=== PATIENT | female | born 1945 | race Hispanic/Latino ===

== ENCOUNTER 2022-02-14 21:33 | Inpatient (IN) | payer OTHER ==
[~2022-02-14] VITALS: Ht 160 cm; Wt 63.0 kg
[2022-02-14 22:33] LABS: BASOPHILS % (AUTO) 0.4 % (0.0-5.0); EOSINOPHILS % (AUTO) 0.3 % (0.0-8.0); HEMATOCRIT 37.5 % (36-48); LYMPHOCYTES % (AUTO) 11.1 % (21.0-51.0); MEAN CORPUSCULAR HGB CONC 33.6 g/dL (32.0-36.0); MEAN CORPUSCULAR VOLUME 92.1 fL (79-99); MONOCYTES % (AUTO) 2.6 % (3.0-13.0); NEUTROPHILS % (AUTO) 84.6 % (40.0-77.0); PLATELET COUNT (AUTO) 135 K/uL (130-400); RED BLOOD CELL COUNT(AUTO) 4.07 MIL/uL (4.00-5.50); RED CELL DISTRIBUTION WIDTH 13.6 % (11.0-15.5); WHITE BLOOD COUNT (AUTO) 9.9 K/uL (4.8-10.8)
[2022-02-14 22:38] LABS: APPEARANCE,URINE CLEAR (CLEAR); BILIRUBIN,URINE NEGATIVE (NEGATIVE); COLOR,URINE LIGHT-YELLOW (YELLOW); GLUCOSE, URINE (UA) NEGATIVE (NEGATIVE); KETONES,URINE NEGATIVE (NEGATIVE); LEUKOCYTE ESTERASE ,URINE 250 Leu/uL (NEGATIVE); NITRATE,URINE NEGATIVE (NEGATIVE); OCCULT BLOOD,URINE NEGATIVE (NEGATIVE); PROTEIN,URINE 10 mg/dL (NEGATIVE); UROBILINOGEN,URINE 0.2 mg/dL (0.2-1.0)
[2022-02-14 22:46] LABS: ALBUMIN 3.1 g/dL (3.5-5.0); CREATININE 2.5 mg/dL (0.5-1.5); POTASSIUM 4.5 mmol/L (3.5-5.1); TOTAL PROTEIN, SERUM 7.1 g/dL (6.0-8.3)
[2022-02-14 23:01] LABS: BACTERIA,URINE RARE /HPF (None Seen); MUCUS,URINE FEW LPF (None Seen); RBC,URINE 0-1 /HPF (0-1); SQUAMOUS EPITHELIAL CELL,UR FEW /HPF (0-2)
[2022-02-14 23:06] LABS: CRP QUANTITATIVE 200.3 mg/L (0.00-9.0)
[2022-02-14] MEDS ORDERED: 0.9%NACL 1000ML 1,000 ML IV SCH (23:30)
[2022-02-14] MEDS ORDERED: CEFTRIAXONE 1G VIAL IVP ONE (23:30)
[2022-02-14] MEDS: 0.9%NACL 1000ML 1,000 ML IV SCH (23:55)
[2022-02-14] MEDS: ASPIRIN 81 MG EC TAB PO SCH (23:59)
[2022-02-15] MEDS ORDERED: ACETAMINOPHEN 325 MG TAB PO PRN (00:30)
[2022-02-15] MEDS ORDERED: ONDANSETRON 4MG INJ IV PRN (00:30)
[2022-02-15 00:34] LABS: HEMOGLOBIN A1C 6.4 % (4.0-6.0)
[2022-02-15] MEDS ORDERED: LOSA50TA64 PO (02:54)
[2022-02-15] MEDS: ACETAMINOPHEN 325 MG TAB PO PRN (03:02)
[2022-02-15 04:02] VITALS: BP 115/62
[2022-02-15 05:00] LABS: BASOPHILS % (AUTO) 0.4 % (0.0-5.0); EOSINOPHILS % (AUTO) 0.4 % (0.0-8.0); HEMATOCRIT 31.1 % (36-48); LYMPHOCYTES % (AUTO) 11.5 % (21.0-51.0); MEAN CORPUSCULAR HEMOGLOBIN 31.5 pg (27.0-33.0); MEAN CORPUSCULAR HGB CONC 34.1 g/dL (32.0-36.0); MEAN CORPUSCULAR VOLUME 92.3 fL (79-99); MONOCYTES % (AUTO) 3.1 % (3.0-13.0); NEUTROPHILS % (AUTO) 83.7 % (40.0-77.0); PLATELET COUNT (AUTO) 119 K/uL (130-400); RED BLOOD CELL COUNT(AUTO) 3.37 MIL/uL (4.00-5.50); RED CELL DISTRIBUTION WIDTH 13.8 % (11.0-15.5); WHITE BLOOD COUNT (AUTO) 7.5 K/uL (4.8-10.8)
[2022-02-15 05:24] LABS: ALBUMIN 2.2 g/dL (3.5-5.0); CREATININE 2.1 mg/dL (0.5-1.5); MAGNESIUM 1.7 mg/dL (1.80-2.40); POTASSIUM 4.4 mmol/L (3.5-5.1); TOTAL PROTEIN, SERUM 5.6 g/dL (6.0-8.3)
[2022-02-15] MEDS ORDERED: MAGNESIUM 2GM PREMIX 50ML 50 ML IV PRN (06:00)
[2022-02-15 07:05] VITALS: BP 140/78
[2022-02-15] MEDS: ASPIRIN 81 MG EC TAB PO SCH (10:35)
[2022-02-15] MEDS: CEFTRIAXONE 1G VIAL IV SCH (10:35)
[2022-02-15] MEDS: ENOXAPARIN SODIUM 40 MG/0.4 ML SYRINGE SQ SCH (10:35)
[2022-02-15] MEDS: FAMOTIDINE 20MG TAB PO SCH ×2 (10:35→21:29)
[2022-02-15] MEDS: 0.9%NACL 1000ML 1,000 ML IV SCH ×2 (10:41→20:00)
[2022-02-15 11:05] VITALS: BP 122/56
[2022-02-15 15:00] VITALS: BP 87/39
[2022-02-15] MEDS ORDERED: CLOPIDOGREL 75MG TAB PO ONE (17:00)
[2022-02-15] MEDS ORDERED: 0.9%NACL 1000ML 1,000 ML IV SCH ×2 (17:00)
[2022-02-15 17:17] LABS: THYROID STIMULATING HORMONE 2.9 uIU/mL (0.36-3.74)
[2022-02-15] MEDS: MEROPENEM 500 MG VIAL IVP SCH (18:07)
[2022-02-15 20:06] VITALS: BP 104/53
[2022-02-15] MEDS ORDERED: ATORVASTATIN 20 MG TABLET PO SCH (21:00)
[2022-02-15 23:38] VITALS: BP 127/73
[2022-02-16] MEDS: ACETAMINOPHEN 325 MG TAB PO PRN (02:15)
[2022-02-16 04:10] LABS: BASOPHILS % (AUTO) 0.5 % (0.0-5.0); EOSINOPHILS % (AUTO) 0.3 % (0.0-8.0); HEMATOCRIT 29.8 % (36-48); LYMPHOCYTES % (AUTO) 23.1 % (21.0-51.0); MEAN CORPUSCULAR HEMOGLOBIN 30.8 pg (27.0-33.0); MEAN CORPUSCULAR HGB CONC 33.2 g/dL (32.0-36.0); MEAN CORPUSCULAR VOLUME 92.8 fL (79-99); MONOCYTES % (AUTO) 2.7 % (3.0-13.0); NEUTROPHILS % (AUTO) 72.5 % (40.0-77.0); PLATELET COUNT (AUTO) 128 K/uL (130-400); RED BLOOD CELL COUNT(AUTO) 3.21 MIL/uL (4.00-5.50); RED CELL DISTRIBUTION WIDTH 13.9 % (11.0-15.5); WHITE BLOOD COUNT (AUTO) 6.3 K/uL (4.8-10.8)
[2022-02-16 04:19] VITALS: BP 135/75
[2022-02-16 04:38] LABS: B-TYPE NATRIURETIC PEPTIDE 214 pg/mL (0-100)
[2022-02-16 04:49] LABS: CREATININE 1.9 mg/dL (0.5-1.5); MAGNESIUM 1.9 mg/dL (1.80-2.40); PHOSPHORUS 1.5 mg/dL (2.5-4.9); POTASSIUM 4.2 mmol/L (3.5-5.1)
[2022-02-16 05:05] LABS: % IRON SATURATION 16.5 % (22-44)
[2022-02-16] MEDS: MEROPENEM 500 MG VIAL IVP SCH (05:09)
[2022-02-16] MEDS: 0.9%NACL 1000ML 1,000 ML IV SCH (05:10)
[2022-02-16 07:10] VITALS: BP 127/64
[2022-02-16] MEDS ORDERED: CLOPIDOGREL 75MG TAB PO SCH (09:00)
[2022-02-16] MEDS: ASPIRIN 81 MG EC TAB PO SCH (10:14)
[2022-02-16] MEDS: FAMOTIDINE 20MG TAB PO SCH (10:14)
[2022-02-16] MEDS: ENOXAPARIN SODIUM 40 MG/0.4 ML SYRINGE SQ SCH (10:14)
[2022-02-16] MEDS: CEFTRIAXONE 1G VIAL IV SCH (10:15)
== END 2022-02-16 11:35 | disposition left against medical advice (07) | DRG 690 ==
LOC: EDH 21:33 → EDHIP 21:34 → 3DH 02-15 02:44
PROVIDERS: ADMIT Internal Medicine; ATTEND Internal Medicine
DX: N39.0 Urinary tract infection, site not specified (principal); N17.9 Acute kidney failure, unspecified; E83.52 Hypercalcemia; Z20.822 Contact with and (suspected) exposure to COVID-19; N18.9 Chronic kidney disease, unspecified; I12.9 Hypertensive chronic kidney disease with stage 1 through stage 4 chronic kidney disease, or unspecified chronic kidney disease; E86.0 Dehydration; I25.10 Atherosclerotic heart disease of native coronary artery without angina pectoris; R00.1 Bradycardia, unspecified
CPT/HCPCS: 36415; 71045; 80048; 80053; 80061; 81001; 82306; 82330; 82550; 82607; 82728; 82746; 83036; 83540; 83550; 83735; 83874; 83880; 83970; 84100; 84439; 84443; 84481; 84484; 85025; 85045; 86140; 87040; 87077; 87088; 87186; 87635; 87804; 93005; 93306; 93356; C9803; G0378; J0696; J1650; J2185; J3475; J7030